=== PATIENT | female | born 1980 | race African-American/Black ===

== ENCOUNTER 2016-09-04 00:42 | Emergency (ER) | payer OTHER | END 2016-09-04 01:51 | disposition home or self-care (01) | LOC: ER 00:42 | DX: M54.6 Pain in thoracic spine (principal); Z88.0 Allergy status to penicillin; Z88.1 Allergy status to other antibiotic agents; Z88.8 Allergy status to other drugs, medicaments and biological substances | CPT/HCPCS: 96372; 99283; A9270-GY; J1885 ==